=== PATIENT | male | born 1990 | race Caucasian/White ===

== ENCOUNTER 2024-09-17 12:53 | Emergency (ER) | payer BC, OTHER ==
[2024-09-17 12:59] VITALS: BP 133/74; PULSE 75; RESP 18; TEMP 98.5; BMI 31.7
[2024-09-17] MEDS ORDERED: DEXAMETHASONE SOD PHOSPHATE 10 MG/1 ML VIAL ONE (13:37)
[2024-09-17] MEDS ORDERED: FAMOTIDINE 20 MG TABLET ONE (13:37)
[2024-09-17] MEDS: DEXAMETHASONE SOD PHOSPHATE 10 MG/1 ML VIAL PO ONE (13:41)
[2024-09-17] MEDS: FAMOTIDINE 20 MG TABLET PO ONE (13:41)
== END 2024-09-17 14:16 | disposition home or self-care (01) ==
LOC: JERFT 12:53
DX: R21 Rash and other nonspecific skin eruption (principal); L29.9 Pruritus, unspecified; T78.40XA Allergy, unspecified, initial encounter
CPT/HCPCS: 99283-25; J1100